=== PATIENT | female | born 1995 ===

== ENCOUNTER → 2023-09-29 15:45 | Outpatient (REF) | payer OTHER, SELFPAY | LOC: MRI 3T 15:45 | PROVIDERS: ATTENDING PHYSICIAN Family Medicine; FAMILY PHYSICIAN Nurse Practitioner Family | DX: N64.3 Galactorrhea not associated with childbirth (principal); N92.6 Irregular menstruation, unspecified; H53.40 Unspecified visual field defects | CPT/HCPCS: 70553; A9575 ==